=== PATIENT | female | born 1945 | race Asian ===

== ENCOUNTER 2017-01-25 10:45 | Outpatient (CLI) | payer MEDICARE ==
[~2017-01-25 10:45] MED LIST: ASPIR 8181 MG ORAL; AZITHROMYCIN250 MG ORAL; CYCLOBENZAPRINE10 MG ORAL; IBUPROFEN400 MG ORAL; METOPROLOL SUCC25 MG ORAL; PROMETHAZINE-C118 M1 ORAL
[2017-01-25 11:07] LABS: APPEARANCE,URINE CLEAR; KETONES,URINE NEGATIVE (NEGATIVE); LEUKOCYTE ESTERASE ,URINE 1+ (NEGATIVE); NITRITE,URINE NEGATIVE (NEGATIVE); PH,URINE 5 (4.5-8.0); PROTEIN,URINE NEGATIVE (NEGATIVE); UROBILINOGEN,URINE NORMAL MG/DL (0.0-1.0)
[2017-01-25 11:08] LABS: BASOPHILS % (AUTO) 1.2 % (0.0-2.0); LYMPHOCYTES % (AUTO) 31.1 % (20.0-45.0); MEAN CORPUSCULAR HEMOGLOBIN 30.5 PG (27.0-31.0); MEAN CORPUSCULAR VOLUME 90 FL (80-99); MEAN PLATELET VOLUME 6.7 FL (6.5-10.1); MONOCYTES % (AUTO) 8.3 % (1.0-10.0); NEUTROPHILS % (AUTO) 55.4 % (45.0-75.0); PLATELET COUNT 172 K/UL (150-450); RED BLOOD COUNT 4.45 M/UL (4.20-5.40); RED CELL DISTRIBUTION WIDTH 11.3 % (11.6-14.8); WHITE BLOOD COUNT 3.9 K/UL (4.8-10.8)
[2017-01-25 11:16] LABS: BACTERIA,URINE FEW /HPF; MUCUS,URINE MODERATE /LPF (NONE/OCC); RBC,URINE 0-2 /HPF (0 - 2); SQUAMOUS EPITHELIAL CELL,UR FEW /LPF (NONE/OCC)
[2017-01-25 11:41] LABS: HEMOGLOBIN A1C 7.5 % (4.3-6.0)
[2017-01-25 12:30] LABS: ALANINE AMINOTRANSFERASE 19 U/L (12-78); ALBUMIN/GLOBULIN RATIO 0.9 (1.0-2.7); ANION GAP 10 mmol/L (5-15); ASPARTATE AMINO TRANSFERASE 19 U/L (15-37); CALCIUM 10.5 MG/DL (8.5-10.1); CARBON DIOXIDE 27 MMOL/L (21-32); CHLORIDE 104 MMOL/L (98-107); CHOLESTEROL 196 MG/DL (< 200); CHOLESTEROL/HDL RATIO 3.5 (3.3-4.4); CREATININE 0.8 MG/DL (0.55-1.30); GLOMERULAR FILTRATION RATE > 60 mL/min (>60); POTASSIUM 4.3 MMOL/L (3.5-5.1); SODIUM 141 MMOL/L (136-145); THYROID STIMULATING HORMONE 2.176 uiU/mL (0.360-3.740); TOTAL PROTEIN 8.4 G/DL (6.4-8.2)
== END 2017-01-25 12:45 | disposition home or self-care (01) ==
LOC: LAB 10:45
DX: I10 Essential (primary) hypertension (principal); R00.2 Palpitations
CPT/HCPCS: 36415; 80053; 80061; 81003; 83036; 84443; 85025

== ENCOUNTER 2017-03-18 11:58 | Outpatient (CLI) | payer MEDICARE ==
[2017-03-18 12:34] LABS: MEAN CORPUSCULAR HEMOGLOBIN 29.7 PG (27.0-31.0); MEAN CORPUSCULAR HGB CONC 33.3 G/DL (32.0-36.0); MEAN CORPUSCULAR VOLUME 89 FL (80-99); MEAN PLATELET VOLUME 7.9 FL (6.5-10.1); PLATELET COUNT 179 K/UL (150-450); RED BLOOD COUNT 4.15 M/UL (4.20-5.40); RED CELL DISTRIBUTION WIDTH 11.5 % (11.6-14.8); WHITE BLOOD COUNT 3.4 K/UL (4.8-10.8)
[2017-03-18 12:36] LABS: APPEARANCE,URINE CLEAR; KETONES,URINE NEGATIVE (NEGATIVE); LEUKOCYTE ESTERASE ,URINE NEGATIVE (NEGATIVE); NITRITE,URINE NEGATIVE (NEGATIVE); PH,URINE 6 (4.5-8.0); PROTEIN,URINE NEGATIVE (NEGATIVE); UROBILINOGEN,URINE NORMAL MG/DL (0.0-1.0)
[2017-03-18 12:49] LABS: ALANINE AMINOTRANSFERASE 21 U/L (12-78); ANION GAP 5 mmol/L (5-15); ASPARTATE AMINO TRANSFERASE 19 U/L (15-37); CALCIUM 9.9 MG/DL (8.5-10.1); CARBON DIOXIDE 29 MMOL/L (21-32); CHLORIDE 106 MMOL/L (98-107); CHOLESTEROL 187 MG/DL (< 200); CHOLESTEROL/HDL RATIO 2.9 (3.3-4.4); CREATININE 0.9 MG/DL (0.55-1.30); GLOMERULAR FILTRATION RATE > 60 mL/min (>60); POTASSIUM 3.7 MMOL/L (3.5-5.1); SODIUM 140 MMOL/L (136-145); THYROID STIMULATING HORMONE 1.427 uiU/mL (0.358-3.740)
[2017-03-18 13:13] LABS: HEMOGLOBIN A1C 6.9 % (4.3-6.0)
[2017-03-18 13:22] LABS: BAND NEUTROPHILS % (MANUAL) 0 % (0-8); BASOPHILS % (MANUAL) 1 % (0-2); EOSINOPHILS % (MANUAL) 5 % (0-3); LYMPHOCYTES % (MANUAL) 28 % (20-45); NEUTROPHILS % (MANUAL) 57 % (45-75); PLATELET ESTIMATE ADEQUATE; PLATELET MORPHOLOGY NORMAL; TOTAL CELLS COUNTED 100
== END 2017-03-18 13:58 | disposition home or self-care (01) ==
LOC: LAB 11:58
DX: E11.9 Type 2 diabetes mellitus without complications (principal); I10 Essential (primary) hypertension
CPT/HCPCS: 36415; 80053; 80061; 81003; 83036; 84443; 85007; 85025

== ENCOUNTER 2017-05-19 14:42 | Emergency (ER) | payer MEDICARE ==
[~2017-05-19] VITALS: Ht 167.6 cm; Wt 66.2 kg
[2017-05-19] MEDS ORDERED: METFORMIN HCL500 M1 ORAL (14:50)
[2017-05-19] MEDS ORDERED: Tylenol #3 tab (300mg/30mg) ORAL ONE (15:30)
[2017-05-19] MEDS ORDERED: Bacitracin Oint UD TOPIC ONE (15:30)
--- NOTE | 2017-05-19 16:28 | Emergency Room Report ---
History of Present Illness General Chief Complaint: Multiple Trauma/Fall Source: Patient, Medical Record Present Illness HPI 71-year-old female presents to the emergency department complaining of 7/10 in severity pain to the bilateral anterior knees and upper lip status post mechanical trip and fall while walking down the street approximately one hour ago. Patient denies loss of consciousness she denies taking blood thinning medications. Patient states she is able to ambulate however palpation in weight bearing does exacerbate her pain but it is not intolerable. Patient reports several open wounds. She does not know when her last tetanus vaccination was. Denies numbness tingling or loss of sensation or gross motor movements of the extremities, incontinence of bowel or bladder. Denies CP, Palpitations, LOC, AMS, dizziness, Changes in Vision, Sensation, paresthesias, or a sudden severe headache. Allergies: Coded Allergies: No Known Allergies (Unverified , 04/24/15) Patient History Past Medical History: see triage record Past Surgical History: unable to obtain Pertinent Family History: none Reviewed Nursing Documentation: PMH: Agreed, PSxH: Agreed Nursing Documentation-PMH Past Medical History: No History, Except For Hx Cardiac Problems: Yes - A. Fib. Hx Hypertension: Yes Review of Systems All Other Systems: negative except mentioned in HPI Physical Exam Vital Signs Date Time Temp Pulse Resp B/P (MAP) Pulse Ox O2 Delivery O2 Flow Rate FiO2 05/19/17 14:46 97.9 74 18 137/86 96 Room Air 97.9 Sp02 EP Interpretation: reviewed, normal General Appearance: no apparent distress, alert, GCS 15, non-toxic Head: normocephalic, other - Abrasion to the upper lip with some mild swelling noted, no active bleeding Eyes: bilateral eye normal inspection, bilateral eye PERRL ENT: hearing grossly normal, normal voice, other - no dental pain. superficial abrasion to the upper lip, no laceration noted. Neck: full range of motion Respiratory: lungs clear, normal breath sounds, speaking full sentences Cardiovascular #1: regular rate, rhythm Musculoskeletal: back normal, gait/station normal, normal range of motion, tender - TTP to the anterior bilateral knees with abrasions noted, FROM, no increased ligamental laxity. Neurologic: alert, oriented x3, responsive, motor strength/tone normal, sensory intact, normal gait, speech normal, grossly normal Psychiatric: judgement/insight normal Skin: normal color, no rash, warm/dry, well hydrated, abrasions - bilateral anterior knees and upper lip Medical Decision Making PA Attestation Dr. Spence is my supervising Physician whom patient management has been discussed with. Diagnostic Impression: Primary Impression: Abrasions of multiple sites Additional Impressions: Contusion of knee, left Qualified Codes: S80.02XA - Contusion of left knee, initial encounter Contusion of right knee Qualified Codes: S80.01XA - Contusion of right knee, initial encounter Contusion, lip Qualified Codes: S00.531A - Contusion of lip, initial encounter ER Course 71-year-old female presents to the emergency department complaining of 7/10 in severity pain to the bilateral anterior knees and upper lip status post mechanical trip and fall while walking down the street approximately one hour ago. Patient denies loss of consciousness she denies taking blood thinning medications. Patient states she is able to ambulate however palpation in weight bearing does exacerbate her pain but it is not intolerable. Patient reports several open wounds. She does not know when her last tetanus vaccination was. Denies numbness tingling or loss of sensation or gross motor movements of the extremities, incontinence of bowel or bladder. Denies CP, Palpitations, LOC, AMS, dizziness, Changes in Vision, Sensation, paresthesias, or a sudden severe headache. Ddx considered but are not limited to Fracture, dislocation, contusion, Sprain/ Strain/Spasm, abrasion just to name a few. Vital signs: are WNL, pt. is afebrile H&PE are most consistent with musculoskeletal injury will perform imaging to r/ o fractures/dislocations. ORDERS: - X-rays of the Bilateral Knees - negative for fx, Dislocation, or significant soft tissue injury, per preliminary read in ED, and signed by JOYCELYN Hummel, my supervising physician has reviewed, and agrees with my interpretation. ED INTERVENTIONS: - Wound cleaning -Bacitracin applied to abrasions by RN. - Pain Control PO DISCHARGE: At this time pt. is stable for d/c to home. Will provide printed patient care instructions, and any necessary prescriptions. Care plan and follow up instructions have been discussed with the patient prior to discharge. Other X-Ray Diagnostic Results Other X-Ray Diagnostic Results #1: X-Ray ordered: Right KNee # of Views/Limited Vs Complete: 3 View Indication: Pain EP Interpretation: Yes PA Xray: Interpretation reviewed, by supervising MD, and agrees with findings. Interpretation: no dislocation, no soft tissue swelling, no fractures Impression: No acute disease Electronically Signed by: Lis Hummel PA-C Other X-Ray Diagnostic Results #2: X-Ray ordered: Left Knee # of Views/Limited Vs Complete: 3 View Indication: Pain PA Xray: Interpretation reviewed, by supervising MD, and agrees with findings. Interpretation: no dislocation, no soft tissue swelling, no fractures Impression: No acute disease Electronically Signed by: Lis Hummel PA-C Last Vital Signs Date Time Temp Pulse Resp B/P (MAP) Pulse Ox O2 Delivery O2 Flow Rate FiO2 05/19/17 15:26 97.9 05/19/17 14:46 74 18 137/86 96 Room Air Disposition: HOME, SELF-CARE Condition: Stable Scripts Acetaminophen* (TYLENOL EXTRA STRENGTH*) 500 Mg Tablet 500 MG ORAL Q6H, #20 TAB 0 Refills Prov: Lis Hummel 05/19/17 Bacitracin/Polymyxin B Sulfate (BACITRACIN-POLYMYXIN OINTMENT) 28.35 Gm Oint...g. 1 APPLIC TP BID, #28.3 GM Prov: Lis Hummel 05/19/17 Referrals: JOVON GUILLORY (PCP) Patient Instructions: Abrasion, [id number], Contusion, [id number], Knee Pain, [id number] Additional Instructions: Take medications as directed. Follow up with a Primary Care Provider in 3-5 days, even if your symptoms have resolved. --Please review list of primary care clinics, if you do not already have a primary care provider Return sooner to ED if new symptoms occur, or current symptoms become worse. - Please note that this Emergency Department Report was dictated using [employer]clarifier technology software, occasionally this can lead to erroneous entry secondary to interpretation by the dictation equipment. Lis Hummel May 19, 2017 16:28
[2017-05-19] MEDS ORDERED: TYLENOL EXTRA500 MG ORAL (16:29)
[2017-05-19] MEDS ORDERED: BACITRACIN-P28.35 GM TP (16:29)
[2017-05-19] MEDS ORDERED: Tetanus/Diptheria/Pertussis Vaccine 0.5ml Syr IM ONE (16:30)
[2017-05-19 16:37] VITALS: BP 135/84
[2017-05-19 16:38] VITALS: BP 135/84
--- NOTE | 2017-05-19 16:52 | Diagnostic Imaging Report ---
Indication: Pain 3 views of the right knee were obtained. Findings: There is narrowing and sclerosis of the patellofemoral compartment. There is no fracture or malalignment. Bones are osteopenic. IMPRESSION: Patellofemoral DJD.
--- NOTE | 2017-05-19 16:52 | Diagnostic Imaging Report ---
Indication: Pain 3 views of the left knee were obtained. Findings: No acute fracture, malalignment, or joint effusion are identified. There is narrowing of the patellofemoral compartment of the knee. There is a probable small joint effusion. The bones are osteopenic. IMPRESSION: Patellofemoral arthrosis
== END 2017-05-19 16:43 | disposition home or self-care (01) ==
LOC: EMR 15:15
DX: S80.212A Abrasion, left knee, initial encounter (principal); S80.211A Abrasion, right knee, initial encounter; S00.511A Abrasion of lip, initial encounter; S80.02XA Contusion of left knee, initial encounter; S80.01XA Contusion of right knee, initial encounter; S36.112A Contusion of liver, initial encounter; W01.0XXA Fall on same level from slipping, tripping and stumbling without subsequent striking against object, initial encounter; Y93.01 Activity, walking, marching and hiking; Y92.410 Unspecified street and highway as the place of occurrence of the external cause; Z23 Encounter for immunization; M17.0 Bilateral primary osteoarthritis of knee; I48.91 Unspecified atrial fibrillation; I10 Essential (primary) hypertension
CPT/HCPCS: 90471; 90715; 99283